=== PATIENT | male | born 1990 | race Caucasian/White ===

== ENCOUNTER 2020-01-31 18:29 | Emergency (ER) | payer OTHER ==
[~2020-01-31] VITALS: Ht 177.8 cm; Wt 95.3 kg
[2020-01-31] MEDS ORDERED: CYCLOBENZAPRINE5 MG PO (22:41)
[2020-01-31] MEDS ORDERED: MOBIC15 MG PO (22:41)
[2020-01-31] MEDS ORDERED: SSD CREAM 1% 5050 GM TOP (22:41)
[2020-01-31 23:06] VITALS: BP 124/74
== END 2020-01-31 23:06 | disposition home or self-care (01) ==
LOC: ER 18:29
DX: S39.012A Strain of muscle, fascia and tendon of lower back, initial encounter (principal); S50.812A Abrasion of left forearm, initial encounter; T22.012A Burn of unspecified degree of left forearm, initial encounter; F17.210 Nicotine dependence, cigarettes, uncomplicated; V43.52XA Car driver injured in collision with other type car in traffic accident, initial encounter; Y93.89 Activity, other specified; Y92.89 Other specified places as the place of occurrence of the external cause; Y99.8 Other external cause status